=== PATIENT | female | born 1955 | race Caucasian/White ===

== ENCOUNTER 2018-02-06 12:40 | Inpatient (IN) | payer OTHER ==
[~2018-02-06] VITALS: Ht 172.7 cm; Wt 77.1 kg
[2018-02-06 13:38] LABS: CALCIUM 9.3 mg/dL (8.5-10.1); CARBON DIOXIDE 21.7 mmol/L (21-32); CREATININE SERUM 1.1 mg/dL (0.6-1.0); POTASSIUM SERUM 4.1 mmol/L (3.5-5.1)
[2018-02-06 13:39] LABS: BASOPHIL % 0.4 % (0-2); PLATELET COUNT 368 x10^3mcL (130-400)
[2018-02-06 13:42] LABS: ALBUMIN 3.5 g/dL (3.4-5.0); BILIRUBIN TOTAL 0.81 mg/dL (0.20-1.00); TOTAL PROTEIN, SERUM 8.3 g/dL (6.4-8.2)
[2018-02-06 13:49] LABS: RED CELL DISTRIBUTION WIDTH 15.7 % (11.5-14.5)
[2018-02-06 16:44] VITALS: BP 143/84
[2018-02-06 17:28] VITALS: BP 132/84
[2018-02-06 20:04] LABS: microscopic required? YES; urine erythrocyte NEGATIVE (NEGATIVE)
[2018-02-06 20:49] VITALS: BP 133/68
[2018-02-07 05:32] VITALS: BP 101/60
[2018-02-07 06:51] LABS: BASOPHIL % 0.8 % (0-2); CALCIUM 8.8 mg/dL (8.5-10.1); CARBON DIOXIDE 19.1 mmol/L (21-32); CHLORIDE SERUM 107 mmol/L (98-107); CREATININE SERUM 0.9 mg/dL (0.6-1.0); GFR1 > 60 mL/min; GLUCOSE SERUM 97 mg/dL (74-106); PLATELET COUNT 324 x10^3mcL (130-400); SODIUM SERUM 139 mmol/L (136-145)
[2018-02-07 07:25] LABS: RED CELL DISTRIBUTION WIDTH 15.7 % (11.5-14.5)
[2018-02-07 09:31] VITALS: BP 100/59
[2018-02-07 13:58] VITALS: BP 113/61
[2018-02-07 16:38] VITALS: BP 116/69
[2018-02-07 21:41] VITALS: BP 115/63
[2018-02-07 21:52] VITALS: Ht 172.7 cm; Wt 77.1 kg
[2018-02-08 05:53] VITALS: BP 132/71
[2018-02-08 06:31] LABS: BASOPHIL % 0.2 % (0-2); PLATELET COUNT 361 x10^3mcL (130-400)
[2018-02-08 06:43] LABS: CALCIUM 9.1 mg/dL (8.5-10.1); CHLORIDE SERUM 110 mmol/L (98-107); CREATININE SERUM 0.9 mg/dL (0.6-1.0); GFR1 > 60 mL/min; GLUCOSE SERUM 153 mg/dL (74-106); POTASSIUM SERUM 4.9 mmol/L (3.5-5.1); SODIUM SERUM 140 mmol/L (136-145)
[2018-02-08 09:34] VITALS: BP 114/57
[2018-02-08 14:01] VITALS: BP 115/62
[2018-02-08 16:35] VITALS: BP 115/62
[2018-02-08 17:25] VITALS: BP 112/54
== END 2018-02-08 18:12 | disposition home or self-care (01) | DRG 189 ==
LOC: ED 12:40 → DU 15:35
PROVIDERS: Emergency Medicine; Internal Medicine; Internal Medicine Pulmonary Disease
DX: J96.01 Acute respiratory failure with hypoxia (principal); E87.2 Acidosis; J20.9 Acute bronchitis, unspecified; K58.9 Irritable bowel syndrome, unspecified; J45.909 Unspecified asthma, uncomplicated; Z88.5 Allergy status to narcotic agent; Z88.8 Allergy status to other drugs, medicaments and biological substances
CPT/HCPCS: 36600; 83880; 85378; J0456; J0696; J1120; J1650; J2920; J3490; J7030; J7620; Q0092; Q9967